=== PATIENT | female | born 1995 | race Caucasian/White ===

== ENCOUNTER 2024-11-19 09:08 | Observation (INO) ==
[2024-11-19] MEDS: ONDANSETRON INJ 2 MG/ML 2 ML VIAL IV STA ×2 (10:02→15:46)
[2024-11-19] MEDS: KETOROLAC 30 MG/ML VIAL IV STA (10:04)
[2024-11-19] MEDS: SODIUM CHLORIDE 0.9% 1,000 ML IV ONE (10:08)
[2024-11-19 10:33] LABS: Hematocrit (blood only) 36.6 % (37.0-47.0); Hemoglobin 12.6 g/dl (12.0-16.0); Immature Granulocytes # (auto) 0.03 K/uL (0.01-0.20); Immature Granulocytes % (auto) 0.3 %; Mean Corpuscular Hemoglobin 31.4 pg (25.0-34.0); Mean Corpuscular Volume 91.3 fL (80.0-100.0); Platelet Count 257 K/uL (130-400); RDW Standard Deviation 42.3 fL (36.4-46.3); Red Blood Count 4.01 M/uL (4.20-5.40); White Blood Count 9.21 K/ul (4.8-10.8)
[2024-11-19 10:45] LABS: Alanine Aminotransferase 29.0 U/L (7-52); Albumin Globulin Ratio 1.5 (0.9-2); Alkaline Phosphatase 48.0 U/L (34-104); Anion Gap 6.0 (3-11); Bilirubin,Total 0.3 mg/dl (0.2-1.0); Blood Urea Nitrogen 10.0 mg/dl (6-23); Calcium 8.7 mg/dl (8.6-10.3); Carbon Dioxide 24.0 mmol/L (21-32); Chloride 105.0 mmol/L (98-107); Creatinine Clr Calc Pharmacy 107.4 ml/min; Globulin 2.3 gm/dl (2.5-4.0); Glucose 151.0 mg/dl (70-99(Fasting)); Potassium 3.6 mmol/L (3.5-5.1); Sodium 135.0 mmol/L (136-145); Total Protein 5.7 gm/dl (6.0-8.3)
[2024-11-19] MEDS: ACETAMINOPHEN 1,000 MG/100 ML VIAL IV STA (12:32)
--- NOTE | 2024-11-19 12:35 | Ultrasound Report ---
PELVIC ULTRASOUND CLINICAL HISTORY: Pelvic pain and abdominal bloating. Patient undergoing IVF with an egg retrieval 24 hours ago at [place]. COMPARISON STUDY: None TECHNIQUE: Transabdominal sonography of the pelvis was performed. FINDINGS: The uterus measured 8.2 x 4.5 x 3.1 cm. The endometrial stripe measured 6 mm in thickness. The right ovary measured 8.4 x 7.5 x 4.5 cm. The left ovary measured 8.6 x 7.7 x 5.9 cm. Both ovaries demonstrated color flow. There are multiple prominent bilateral ovarian follicles consistent with stimulation from IVF medicat ion. There is a small amount of ascites present within the pelvis and both flanks. The patient declined endovaginal scanning. IMPRESSION: 1. Enlarged bilateral ovaries with multiple bilateral ovarian follicles. The findings are consistent with stimulation from IVF medication. No ultrasonographic evidence of ovarian torsion 2. Small amount of ascites within the pelvis and both flanks. This is nonspecific but may be secondar y to follicle rupture or the patient's recent IVF procedure. ACT 112: Negative or not required by law. Electronically signed by: James Le M.D. 11/19/2024 12:34 PM
[2024-11-19 12:39] LABS: Appearance Urine Clear (Clear); Glucose Urine UA Negative (Negative)
--- NOTE | 2024-11-19 13:02 | Emergency Department Note ---
Impression & Plan Ovarian hyperstimulation syndrome ED Provider Note CHIEF COMPLAINT: Pelvic pain HISTORY OF PRESENTING ILLNESS: Patient is a 28-year-old female presents to the emergency department today for complaints of lower pelvic pain after post retrieval from an egg for IVF. She was seen by Dr. Milena Alanis from [facility]. She had the procedure done 24 hours ago and has had increased pain since. She denies any bleeding but does states she had very mild spotting yesterday. Per Dr. Merrill there were a total of 16-17 puncture sites for egg retrieval. She denies chest pain, sob, breathing difficulties, abdominal pain, headache, fevers/chills, blood in stool or urine, any recent illness, or any recent travel. REVIEW OF SYSTEMS: See HPI for pertinent positives and pertinent negatives. ALLERGIES: See below MEDICATIONS: See below PAST MEDICAL HISTORY: See below PHYSICAL EXAM: VITAL SIGNS - Vital signs and nursing notes were reviewed. GENERAL -28-year-old female appearing her stated age who is in no acute distress. Communicates well with provider and answers questions appropriately. HEAD - NC/AT. EYES - PERRL with EOMI bilaterally. Sclera anicteric. Palpebral conjunctiva pink and moist with no injection noted. NECK - Neck with FROM. Supple to palpation. No nuchal rigidity. LUNGS - Chest wall symmetric without accessory muscle use, intercostals retractions, or central cyanosis. Normal vesicular breath sounds CTA B/L. No wheezes, rales, or rhonchi appreciated. CARDIAC - RRR with S1/S2. No murmur, rubs, or gallops appreciated. ABDOMEN - Abdominal contour is without pulsations or visible masses. Negative [place] or Gary Turners Signs. BS normoactive all four quadrants. Increased tenderness to palpation appreciated in all 4 quadrants. Mild bloating distention noted. No guarding. No rebound Tenderness. Negative Vovsings. Negative [place]. No palpable masses, hepatosplenomegaly, or ascites noted. EXTREMITIES - No clubbing or peripheral cyanosis. No pretibial edema present. +3/5 radial and dorsalis pedis pulses palpated throughout. +5/5 strength noted in UE/LE bilaterally. PSYCH - A&Ox3 and cooperates fully with examiner. Pt is very pleasant and interacts well with examiner. DIFFERENTIAL DIAGNOSIS: Differential diagnosis includes appendicitis, diverticulitis, constipation, gastroenteritis, bowel obstruction, cholecystitis, appendicitis, inflammatory bowel disease, renal colic, PUD, biliary pathology, pancreatitis, mesenteric ischemia, aortic pathology, infection, genitourinary, UTI, perforated viscus, ovarian torsion, hyperstimulation ovarian syndrome, among others. ED COURSE AND MEDICAL DECISION MAKING: HISTORY FROM INDEPENDENT HISTORIAN: History was provided by the patient and her significant other who is a secondary historian. MONITOR: Continuous sap portal developer: Order was placed for continuous sap portal developer. Patient was placed on the sap portal developer and continuous pulse ox. Patient was noted to be in normal sinus rhythm at an initial rate of 90 bpm per my interpretation. INTERPRETATION OF LABS: I interpreted the labs with full lab results as below in the lab section of this note. Laboratory results pertinent to the emergent complaint are discussed in the MDM section below. The patient was advised to follow up with their PCP and/or specialist(s) for further outpatient monitoring and management of any abnormal results. INTERPRETATION OF IMAGING: Imaging studies were interpreted by myself and read by radiology as per the imaging section of this note. The patient was advised to follow up with their PCP and/or specialist(s) for further outpatient management of any non-emergent abnormal findings. CHRONIC MEDICAL/SOCIAL CONDITIONS AFFECTING CARE: No social concerns were identified as barriers to patients care. ESCALATION OF CARE CONSIDERED: I considered admission on this patient with a diagnosis of ovarian hyperstimulation syndrome. CONSULTATIONS: I had a meaningful discussion about this patient with Dr. Avilez who agrees with my assessment and the treatment plan. I consulted with Dr. Milena Merrill from [facility] who performed the original procedure. I also consulted with Dr. Avilez from [facility] who was able to come down and evaluate the patient. She was also in touch contact with Dr. Milena Merrill. SUMMARY: I examined the patient for complaints of abdominal pain postprocedure. A physical exam and history were performed. Nursing notes, EMR, and medication list were personally reviewed. CBC showed no leukocytosis or thrombocytopenia. Hemoglobin was 11.4 showing a mild anemia. Patient does deny any bleeding. CMP showed no emergent findings with a normal kidney and liver function. Urinalysis showed no infection or blood. Pelvic ultrasound did show enlarged bilateral ovaries with multiple bilateral ovarian follicles, findings consistent with stimulation from IVF. There is no evidence of ovarian torsion. There is a small amount of ascites within the pelvis and both flanks which is not specific and could be secondary to follicle rupture or the recent IVF procedure. CT of the abdomen and pelvis showed enlarged multicystic bilateral ovaries with ascites and small bilateral pleural effusions. Highly suggestive of ovarian hyperstimulation syndrome. Correlating the patient's labs with with the CT findings this patient may have a very mild ovarian hyperstimulation syndrome. Throughout the patient's stay here in the emergency department she originally complained of pain as a 5/10. She was given 30 mg of Toradol with improvement in pain and discomfort. She was also given Zofran 4 mg IV with improvement in nausea. She later was requesting some Tylenol as her pain was returning. She was given 1 g of Tylenol IV with improvement in pain and discomfort. Sometime later the patient was reporting increased pain again and was given morphine 2 mg IV and Zofran 4 mg IV with improvement in pain and discomfort as well as nausea. I did consult with Dr. Morgan from [facility] who is recommending admission or transfer of the patient to be observed overnight. I also consulted with Dr. Avilez from [facility] here at the hospital who is also able to speak with Dr. Morgan and agree to plan of care for the patient. The patient will be admitted for observation overnight. Dr. Avilez accepts the patient for admission. DIAGNOSIS: Ovarian hyperstimulation syndrome TREATMENT PLAN/DISCHARGE INSTRUCTIONS: Admit to [facility] by Dr. Avilez. Past Med/Surg History Problem List (Updated 11/20/24 @ 14:19 by ANNA Jones) Depression with anxiety Allergies Ovarian hyperstimulation syndrome (Acute) Medical History (Updated 11/20/24 @ 14:19 by ANNA Jones) Atypical chest pain Social History (Updated 01/21/21 @ 21:33 by Felecia Rocha MD) Smoking Status: Light tobacco smoker Tobacco Type: Cigarettes and E-cigarettes / Vaping Second Hand Exposure: No; Do You Dip or Chew Tobacco: No; Hx Alcohol Use: Yes Alcohol type: beer, wine and hard liquor Hx Substance Use: No Preferred Language: Bruneian Communication Ability: Effective Systems Mechanic Required: No Beliefs That Will Affect Care: None Current Living Situation: Parent current occupational status: employed Feels Safe at Home: Yes Assistive Devices: None Allergies Allergies Allergy/AdvReac Type Severity Reaction Status Date / Time No Known Allergies Allergy Verified 01/09/21 23:52 Home Meds Home Medications Medication Instructions Recorded Confirmed loratadine-pseudoephedrine ER 10 1 tab PO DAILY PRN Congestion 01/09/21 11/19/24 mg-240 mg tablet,extended [id number] (Claritin-D 24 Hour) buspirone 10 mg tablet 10 mg PO BID 11/19/24 11/19/24 escitalopram oxalate 20 mg tablet 20 mg PO DAILY 11/19/24 11/19/24 levonorgestrel 0.15 mg-ethinyl 1 tab PO DAILY 11/19/24 11/19/24 estradiol 0.03 mg tablet (Altavera (28)) Previous Rx's Medication Instructions Recorded ondansetron 4 mg disintegrating 4 mg PO DAILY PRN nausea and 11/20/24 tablet vomiting 5 days #5 tabs oxycodone 5 mg tablet 5 mg PO Q4 PRN pain #14 tabs 11/20/24 Results & Data (ED) Vital Signs Vital Signs - 24 hr 11/19/24 14:42 11/19/24 15:36 11/19/24 15:45 Temperature 37.1 C Temperature Source Oral Pulse Rate 85 Pulse Rate [Finger] 83 85 Pulse Rate from SpO2 Sensor 87 Respiratory Rate 18 16 19 Respiratory Effort / Characteristics Non-Labored Spontaneous Respiratory Depth Normal Blood Pressure Blood Pressure [Right Arm] 130/81 128/72 Blood Pressure Mean Blood Pressure Mean [Right Arm] 97 90 Blood Pressure Position [Right Arm] Semi-fowlers Pulse Oximetry 100 99 99 Oxygen Delivery Method Room Air 11/19/24 15:45 11/19/24 15:45 11/19/24 15:45 Temperature Temperature Source Pulse Rate Pulse Rate [Finger] Pulse Rate from SpO2 Sensor Respiratory Rate Respiratory Effort / Characteristics Respiratory Depth Blood Pressure 120/73 120/73 120/73 Blood Pressure [Right Arm] Blood Pressure Mean 84 84 84 Blood Pressure Mean [Right Arm] Blood Pressure Position [Right Arm] Pulse Oximetry Oxygen Delivery Method 11/19/24 15:51 11/19/24 15:55 11/19/24 16:00 Temperature Temperature Source Pulse Rate 86 90 Pulse Rate [Finger] Pulse Rate from SpO2 Sensor 87 Respiratory Rate 18 Respiratory Effort / Characteristics Respiratory Depth Blood Pressure 124/82 Blood Pressure [Right Arm] Blood Pressure Mean 84 Blood Pressure Mean [Right Arm] Blood Pressure Position [Right Arm] Pulse Oximetry 99 Oxygen Delivery Method 11/19/24 16:00 11/19/24 16:06 11/19/24 16:15 Temperature Temperature Source Pulse Rate 83 85 Pulse Rate [Finger] Pulse Rate from SpO2 Sensor 85 84 Respiratory Rate 21 15 Respiratory Effort / Characteristics Respiratory Depth Blood Pressure 124/82 Blood Pressure [Right Arm] Blood Pressure Mean 84 Blood Pressure Mean [Right Arm] Blood Pressure Position [Right Arm] Pulse Oximetry 98 99 Oxygen Delivery Method 11/19/24 16:15 11/19/24 16:15 11/19/24 16:15 Temperature Temperature Source Pulse Rate Pulse Rate [Finger] Pulse Rate from SpO2 Sensor Respiratory Rate Respiratory Effort / Characteristics Respiratory Depth Blood Pressure 136/83 136/83 136/83 Blood Pressure [Right Arm] Blood Pressure Mean 96 96 96 Blood Pressure Mean [Right Arm] Blood Pressure Position [Right Arm] Pulse Oximetry Oxygen Delivery Method 11/19/24 16:21 11/19/24 16:30 11/19/24 16:30 Temperature Temperature Source Pulse Rate 86 Pulse Rate [Finger] Pulse Rate from SpO2 Sensor 85 Respiratory Rate 15 Respiratory Effort / Characteristics Respiratory Depth Blood Pressure 131/90 131/90 Blood Pressure [Right Arm] Blood Pressure Mean 102 102 Blood Pressure Mean [Right Arm] Blood Pressure Position [Right Arm] Pulse Oximetry 99 Oxygen Delivery Method 11/19/24 16:30 11/19/24 16:36 11/19/24 16:45 Temperature Temperature Source Pulse Rate 84 89 Pulse Rate [Finger] Pulse Rate from SpO2 Sensor 85 88 Respiratory Rate 23 18 Respiratory Effort / Characteristics Respiratory Depth Blood Pressure 131/90 Blood Pressure [Right Arm] Blood Pressure Mean 102 Blood Pressure Mean [Right Arm] Blood Pressure Position [Right Arm] Pulse Oximetry 99 99 Oxygen Delivery Method 11/19/24 16:45 11/19/24 16:45 11/19/24 16:45 Temperature Temperature Source Pulse Rate Pulse Rate [Finger] Pulse Rate from SpO2 Sensor Respiratory Rate Respiratory Effort / Characteristics Respiratory Depth Blood Pressure 141/84 H 141/84 H 141/84 H Blood Pressure [Right Arm] Blood Pressure Mean 96 96 96 Blood Pressure Mean [Right Arm] Blood Pressure Position [Right Arm] Pulse Oximetry Oxygen Delivery Method 11/19/24 16:51 11/19/24 16:57 11/19/24 17:00 Temperature Temperature Source Pulse Rate 84 Pulse Rate [Finger] Pulse Rate from SpO2 Sensor 85 82 Respiratory Rate Respiratory Effort / Characteristics Respiratory Depth Blood Pressure 128/76 Blood Pressure [Right Arm] Blood Pressure Mean 95 Blood Pressure Mean [Right Arm] Blood Pressure Position [Right Arm] Pulse Oximetry 98 99 Oxygen Delivery Method 11/19/24 17:00 11/19/24 17:06 Temperature Temperature Source Pulse Rate 87 Pulse Rate [Finger] Pulse Rate from SpO2 Sensor 88 Respiratory Rate Respiratory Effort / Characteristics Respiratory Depth Blood Pressure 128/76 Blood Pressure [Right Arm] Blood Pressure Mean 95 Blood Pressure Mean [Right Arm] Blood Pressure Position [Right Arm] Pulse Oximetry 98 Oxygen Delivery Method Laboratory Data 11/20/24 06:04 11/20/24 06:04 Lab Results 11/19/24 11/19/24 Range/Units 10:08 12:25 WBC 9.21 (4.8-10.8) K/ul RBC 4.01 L (4.20-5.40) M/uL Hgb 12.6 (12.0-16.0) g/dl Hct 36.6 L (37.0-47.0) % MCV 91.3 (80.0-100.0) fL MCH 31.4 (25.0-34.0) pg MCHC 34.4 (32.0-36.0) g/dL RDW Std Deviation 42.3 (36.4-46.3) fL RDW Coeff of Allison 12.6 (11.5-14.5) % Plt Count 257 (130-400) K/uL MPV 9.0 L (9.4-12.4) fL Immature Gran % (Auto) 0.3 % Neut % (Auto) 80.4 % Lymph % (Auto) 12.2 % Yancey % (Auto) 6.4 % Eos % (Auto) 0.3 % Baso % (Auto) 0.4 % Neut # (Auto) 7.40 H (1.40-6.50) K/uL Lymph # (Auto) 1.12 L (1.20-3.40) K/uL Yancey # (Auto) 0.59 (0.11-0.59) K/uL Eos # (Auto) 0.03 (0.00-0.50) K/uL Baso # (Auto) 0.04 (0.00-0.20) K/uL Immature Gran # (Auto) 0.03 (0.01-0.20) K/uL Sodium 135 L (136-145) mmol/L Potassium 3.6 (3.5-5.1) mmol/L Chloride 105 (98-107) mmol/L Carbon Dioxide 24 (21-32) mmol/L Anion Gap 6 (3-11) BUN 10 (6-23) mg/dl Creatinine 0.75 (0.6-1.2) mg/dl Est Cr Clr Drug Dosing 107.4 ml/min eGFR 112.53 BUN/Creatinine Ratio 13.3 (10-20) Glucose 151 H (70-99(Fasting)) mg/dl Calcium 8.7 (8.6-10.3) mg/dl Total Bilirubin 0.3 (0.2-1.0) mg/dl AST 24 (13-39) U/L ALT 29 (7-52) U/L Alkaline Phosphatase 48 (34-104) U/L Total Protein 5.7 L (6.0-8.3) gm/dl Albumin 3.4 (3.4-5.0) gm/dl Globulin 2.3 L (2.5-4.0) gm/dl Albumin/Globulin Ratio 1.5 (0.9-2) Urine Color Yellow Urine Appearance Clear (Clear) Urine pH 7.0 (4.5-7.5) Ur Specific [place] 1.016 (1.000-1.030) Urine Protein Negative (Negative) Urine Glucose (UA) Negative (Negative) Urine Ketones Negative (Negative) Urine Blood Negative (Negative) Urine Nitrite Negative (Negative) Urine Bilirubin Negative (Negative) Urine Urobilinogen Negative (Negative) Ur Leukocyte Esterase Negative (Negative) Urine Comment Administered Medications Discontinued Medications Acetaminophen (Acetaminophen 325 Mg Tab) 650 mg PO Q4H PRN PRN Reason: Pain or Fever Stop: 12/19/24 17:16 Last Admin: 11/20/24 07:40 Dose: 650 mg Documented By: Admin: 11/19/24 18:37 Dose: 650 mg Documented By: AARON Buspirone HCl (Buspirone 5 Mg Tab) 10 mg PO BID HUBERT Stop: 12/19/24 20:59 Last Admin: 11/20/24 08:24 Dose: 10 mg Documented By: Admin: 11/19/24 20:55 Dose: 10 mg Documented By: JOVAN Cabergoline (Cabergoline) 1 each PO DAILY HUBERT Stop: 12/19/24 19:59 Last Admin: 11/20/24 09:01 Dose: Not Given Documented By: Admin: 11/19/24 20:56 Dose: 1 each Documented By: JOVAN Escitalopram Oxalate (Escitalopram Oxalate 20 Mg Tab) 20 mg PO DAILY HUBERT Stop: 12/20/24 08:59 Last Admin: 11/20/24 08:24 Dose: 20 mg Documented By: CASIE Hydromorphone HCl (Hydromorphone Agronomy Technician 30 Mg/30 Ml) 30 mg IV PRN PRN; Protocol PRN Reason: PHOTO LAB MANAGER Pain Titration Stop: 12/03/24 17:16 Last Admin: 11/19/24 20:30 Dose: 30 mg Documented By: JOVAN Co-signed By: TONY Hydromorphone HCl (Hydromorphone Inj 0.5 Mg/0.5 Ml Syr) 0.5 mg IV NOW STA Stop: 11/19/24 18:21 Last Admin: 11/19/24 18:39 Dose: 0.5 mg Documented By: FG Sodium Chloride (Nss) 1,000 mls @ 999 mls/hr IV .Q1H1M ONE Stop: 11/19/24 10:50 Last Infusion: 11/19/24 11:46 Dose: Infused Documented By: Admin: 11/19/24 10:08 Dose: 999 mls/hr Documented By: CEF Acetaminophen (Ofirmev) 1,000 mg in 100 mls @ 400 mls/hr IV NOW STA Stop: 11/19/24 12:26 Last Infusion: 11/19/24 14:16 Dose: Infused Documented By: Admin: 11/19/24 12:32 Dose: 400 mls/hr Documented By: CEF Sodium Chloride (Nss) 1,000 mls @ 50 mls/hr IV .Q20H HUBERT Stop: 12/03/24 17:19 Last Admin: 11/20/24 04:14 Dose: 50 mls/hr Documented By: Infusion: 11/20/24 04:14 Dose: Infused Documented By: Infusion: 11/19/24 21:00 Dose: 50 mls/hr Documented By: Admin: 11/19/24 20:37 Dose: 15 mls/hr Documented By: JOVAN Sodium Chloride (Nss) 500 mls @ 50 mls/hr IV .Q10H HUBERT Stop: 11/19/24 17:29 Last Admin: 11/19/24 18:48 Dose: 50 mls/hr Documented By: AARON Promethazine HCl (Phenergan) 25 mg in 51 mls @ 204 mls/hr IV Q6H PRN PRN Reason: Nausea And Vomiting Stop: 12/19/24 19:20 Last Infusion: 11/19/24 20:04 Dose: Infused Documented By: Admin: 11/19/24 19:37 Dose: 204 mls/hr Documented By: PIERO Ioversol (Optiray 320 100ml) 90 ml IV ONCE ONE Stop: 11/19/24 14:13 Last Admin: 11/19/24 14:12 Dose: 90 ml Documented By: DOMONIQUE Ketorolac Tromethamine (Ketorolac 30 Mg/Ml Vial) 30 mg IV NOW STA Stop: 11/19/24 09:48 Last Admin: 11/19/24 10:04 Dose: 30 mg Documented By: CEF Miscellaneous (Levonorgestrel-Ethinyl Estrad [Altavera (28)] 0.15-0.03 Mg Table--Order Awaiting Action) 1 each N/A QS HUBERT Stop: 12/20/24 00:00 Last Admin: 11/20/24 08:28 Dose: Not Given Documented By: Admin: 11/20/24 00:06 Dose: Not Given Documented By: JOVAN Morphine Sulfate (Morphine Sulfate 2 Mg/Ml Carp) 2 mg IV NOW STA Stop: 11/19/24 15:07 Last Admin: 11/19/24 15:36 Dose: 2 mg Documented By: NICOLE Ganirelix Acetate 250 Mcg/0.5ml ~Non- Formulary Patient's Own Med 1 each SQ HS ONE Stop: 11/19/24 21:01 Last Admin: 11/19/24 20:56 Dose: 250 mcg Documented By: JOVAN Ondansetron HCl (Ondansetron Inj 2 Mg/Ml 2 Ml Vial) 4 mg IV NOW STA Stop: 11/19/24 09:49 Last Admin: 11/19/24 10:02 Dose: 4 mg Documented By: CEF Ondansetron HCl (Ondansetron Inj 2 Mg/Ml 2 Ml Vial) 4 mg IV NOW STA Stop: 11/19/24 15:41 Last Admin: 11/19/24 15:46 Dose: 4 mg Documented By: NICOLE Ondansetron HCl (Ondansetron Inj 2 Mg/Ml 2 Ml Vial) 4 mg IV Q6H PRN PRN Reason: Nausea And Vomiting Stop: 12/19/24 17:16 Last Admin: 11/19/24 18:36 Dose: 4 mg Documented By: AARON Imaging Data Radiologist's Impression: Pelvis Ultrasound 11/19/24 09:48 PELVIC ULTRASOUND CLINICAL HISTORY: Pelvic pain and abdominal bloating. Patient undergoing IVF with an egg retrieval 24 hours ago at [place]. COMPARISON STUDY: None TECHNIQUE: Transabdominal sonography of the pelvis was performed. FINDINGS: The uterus measured 8.2 x 4.5 x 3.1 cm. The endometrial stripe measured 6 mm in thickness. The right ovary measured 8.4 x 7.5 x 4.5 cm. The left ovary measured 8.6 x 7.7 x 5.9 cm. Both ovaries demonstrated color flow. There are multiple prominent bilateral ovarian follicles consistent with stimulation from IVF medication. There is a small amount of ascites present within the pelvis and both flanks. The patient declined endovaginal scanning. IMPRESSION: 1. Enlarged bilateral ovaries with multiple bilateral ovarian follicles. The findings are consistent with stimulation from IVF medication. No ultrasonographic evidence of ovarian torsion 2. Small amount of ascites within the pelvis and both flanks. This is nonspecific but may be secondary to follicle rupture or the patient's recent IVF procedure. ACT 112: Negative or not required by law. Electronically signed by: James Le M.D. 11/19/2024 12:34 PM Abdomen/Pelvis CT 11/19/24 13:54 CT SCAN OF THE ABDOMEN AND PELVIS WITH IV CONTRAST CLINICAL HISTORY: Abdominal pain. History of egg for IVF performed at [place] 24 hours ago. Vomiting. COMPARISON STUDY: Pelvic ultrasound performed the same day TECHNIQUE: Following the IV administration of 90 cc of Optiray 320, CT scan of the abdomen and pelvis is performed from the lung bases to the proximal femora. Images are reviewed in the axial, sagittal, and coronal planes. IV contrast was administered without complication. A dose lowering technique was utilized adhering to the principles of ALARA. CT DOSE: 870.15 mGy.cm FINDINGS: Lung bases: There are small bilateral pleural effusions with basilar atelectatic change Liver: No space-occupying hepatic masses are visualized. Hepatic and portal veins appear patent. Gallbladder: No intrinsic gallbladder abnormalities identified Spleen: There is an upper pole splenic cleft. No splenic masses are visualized. Pancreas: Masses are visualized. Adrenal glands: Neither adrenal gland is pathologically enlarged. Kidneys: No solid renal masses are visualized. There is no hydronephrosis. Abdominal vasculature: There is no evidence of abdominal aortic dilatation. Bowel: There are no transition zones indicate bowel obstruction. The appendix appears normal. Peritoneum: There is a small volume of pelvic ascites. There is perihepatic and perisplenic fluid. There is ascites within the paracolic gutters. Lymphadenopathy: There is no evidence of pathologic lymphadenopathy Pelvic viscera: Both ovaries are enlarged and contain multiple cysts. The left ovary measures 8 cm in length. The right ovary measures 6.5 cm in length. No bladder abnormalities are visualized. No uterine masses are visualized. Skeletal structures: No lytic or blastic skeletal lesions are visualized. IMPRESSION: 1. Enlarged multicystic bilateral ovaries with ascites and small bilateral pleural effusions. The findings are highly suggestive of ovarian hyperstimulation syndrome. ACT 112: Negative or not required by law. Electronically signed by: James Le M.D. 11/19/2024 2:59 PM Discharge Plan Visit Data Chief Complaint: Abdominal Pain Stated Complaint: ABD PAIN, 24 POST EGG RETREIVAL, TIGHTNESS, DIZZY ED Provider: Trey Avilez ED Midlevel Provider: Courtney Nicole Discharge Problem: Ovarian hyperstimulation syndrome Patient Disposition: Admitted As Inpatient Condition: Good Discharge Instructions Interventions: ED Discharge Assessment Last Done: 11/19/24 18:59
[2024-11-19] MEDS: OPTIRAY 320 100ml IV ONE (14:12)
--- NOTE | 2024-11-19 15:01 | CT Scan Report ---
CT SCAN OF THE ABDOMEN AND PELVIS WITH IV CONTRAST CLINICAL HISTORY: Abdominal pain. History of egg for IVF performed at [place] 24 hours ago. Vomitin g. COMPARISON STUDY: Pelvic ultrasound performed the same day TECHNIQUE: Following the IV administration of 90 cc of Optiray 320, CT scan of the abdomen and pelvi s is performed from the lung bases to the proximal femora. Images are reviewed in the axial, sagittal , and coronal planes. IV contrast was administered without complication. A dose lowering technique wa s utilized adhering to the principles of ALARA. CT DOSE: 870.15 mGy.cm FINDINGS: Lung bases: There are small bilateral pleural effusions with basilar atelectatic change Liver: No space-occupying hepatic masses are visualized. Hepatic and portal veins appear patent. Gallbladder: No intrinsic gallbladder abnormalities identified Spleen: There is an upper pole splenic cleft. No splenic masses are visualized. Pancreas: Masses are visualized. Adrenal glands: Neither adrenal gland is pathologically enlarged. Kidneys: No solid renal masses are visualized. There is no hydronephrosis. Abdominal vasculature: There is no evidence of abdominal aortic dilatation. Bowel: There are no transition zones indicate bowel obstruction. The appendix appears normal. Peritoneum: There is a small volume of pelvic ascites. There is perihepatic and perisplenic fluid. Th ere is ascites within the paracolic gutters. Lymphadenopathy: There is no evidence of pathologic lymphadenopathy Pelvic viscera: Both ovaries are enlarged and contain multiple cysts. The left ovary measures 8 cm in length. The right ovary measures 6.5 cm in length. No bladder abnormalities are visualized. No uterine masses are visualized. Skeletal structures: No lytic or blastic skeletal lesions are visualized. IMPRESSION: 1. Enlarged multicystic bilateral ovaries with ascites and small bilateral pleural effusions. The fin dings are highly suggestive of ovarian hyperstimulation syndrome. ACT 112: Negative or not required by law. Electronically signed by: James Le M.D. 11/19/2024 2:59 PM
[2024-11-19] MEDS: MoRPHine SULFATE 2 MG/ML CARP IV STA (15:36)
[2024-11-19] MEDS ORDERED: NALOXONE HCL 0.4 MG/1 ML VIAL/CARP IV PRN (17:17)
--- NOTE | 2024-11-19 17:34 | OB/GYN Consultation ---
Date of Consultation November 19, 2024 Assessment & Plan (1) Ovarian hyperstimulation syndrome: Plan Patient with moderate ohss with need for pain control and monitoring for improvement. Discussed transfer to tertiary center vs. initial monitoring and mgmt here. She prefers latter. She has spoken to her [facility] physician Dr. Merrill and I have spoken to that physician as well. No evidence of torsion, clinically, by exam and on imaging. Reviewed plan of care with pt for pain mgmt, diet--salty and electrolyte rich options preferred, monitoring for worsening sx, labs and vital signs. In discussion with [facility] adding cabergoline and/or GNRH agonist could sped her recovery, but i have asked pharmacy about availability to us here and not available (pharmacy checking further and let me know if that changes). 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 Couple agreeable to this plan but aware may need to transfer to tertiary care facility in future. If any concerns for sudden worsening pain, needs immediate reevaluation. Addendum: revisited pt at bedside. she ended up bringing from home her gnrh agonist and cabergoline and they have been dosed. she is drinking and eating and needs to void. pain is better controlled. feels belly is tight. abd soft mild distended. no fluid wave. will cont with current care plan. pt to alert me of any worsening or sudden pain, she is aware of concern for torsion risk. strict i/o's. labs ordered for am. multiple visits with pt in er and at floor. called her [facility] physician and then communicated with her again about trt plan face to face time 60min and time spent with documentation and collaboration with [facility] physicians exceeds 30min. History of Present Illness Reason for Consultation: ovarian hyperstimulation Requesting Physician: Courtney CASTILLO Attending Physician: Courtney CASTILLO History of Present Illness 28yo G0 with cc of worsening abdominal pain and nausea in background of recent egg retrieval who I am asked to see on consult by ANNA Nicole. Patient notes that yesterday under the care of Dr. Merrill, [facility], she had egg retrieval of 13 eggs. She was also given a shot thereafter and went home. This am noting worsening pain, difficult to walk to BR. Came to ER. No vaginal bleeding. Some nausea but no vomiting. Tried tylenol and ibuprofen for pain but did not really help. Then given morphine and that helped but made her feel funny. Has some discomfort on right with deep breaths but otherwise not SOB. No sudden severe pain at any point, was gradual worsening. Hungry now, last ate at 8am. Urinating, has voided twice since being here. Does not report sudden severe increasing abdominal girth, feels she could get her routine pants on but feels would be tight. No LE edema. She underwent CT scan here and pelvic u/s. Fluid in abdomen c/w mild acites. Bilateral ovarian enlargement with multiple cysts. Normal uterus. By u/s normal flow/perfusion of both ovaries. Patient in ER with partner. They have been communicating with [facility]. OB/GYNHx: G0, infertility, spouse with genetic disorder and so plan was for genetic testing of embryos and transfer down the road. Allergies Allergy/AdvReac Type Severity Reaction Status Date / Time No Known Allergies Allergy Verified 01/09/21 23:52 Home Medications Medication Instructions Recorded Confirmed Type loratadine-pseudoephedrine ER 10 1 tab PO DAILY PRN Congestion 01/09/21 11/19/24 History mg-240 mg tablet,extended [id number] (Claritin-D 24 Hour) buspirone 10 mg tablet 10 mg PO BID 11/19/24 11/19/24 History escitalopram oxalate 20 mg tablet 20 mg PO DAILY 11/19/24 11/19/24 History levonorgestrel 0.15 mg-ethinyl 1 tab PO DAILY 11/19/24 11/19/24 History estradiol 0.03 mg tablet (Altavera (28)) Patient History Medical History (Updated 11/19/24 @ 17:44 by Shae Avilez MD, FACOG) Atypical chest pain Social History (Updated 01/21/21 @ 21:33 by Fleecia Rocha MD) Smoking Status: Never smoker Preferred Language: Turkish current occupational status: employed Feels Safe at Home: Yes Review of Systems Constitutional: as per Subjective / HPI Physical Exam Constitutional: WD/WN, vitals as above (laying still on stretcher but does not appear toxic, able to move in bed) Respiratory: normal respiratory effort, lungs clear to auscultation (no rales) Cardiovascular: Rate/Rhythm: regular rate and regular rhythm Gastrointestinal (Abdomen): Inspection/Auscultation: abdomen normal to inspection and + abdomen distended (slightly) Percussion/Palpation: + abdomen tender (mild ) and abdomen soft; no guarding, abdomen not rigid and no fluid wave Neurologic: grossly normal Psychiatric: A+Ox3, euthymic affect Results & Data Vital Signs (Past 12 Hours) Vital Signs Temp Pulse Pulse Resp BP BP Pulse Ox 11/19/24 15:55 90 11/19/24 15:36 85 16 128/72 99 11/19/24 13:20 89 16 131/77 100 11/19/24 11:09 95 H 16 133/81 100 11/19/24 09:20 98.2 F 119 H 18 145/98 H 95 O2 Del Method 11/19/24 15:55 11/19/24 15:36 11/19/24 13:20 Room Air 11/19/24 11:09 Room Air 11/19/24 09:20 Room Air Laboratory Results No significant lab abnormalities noted. Diagnostic Findings CT report reviewed, u/s images and report reviewed. PG Care Time/CCT Total # of Minutes Spent Total Time Spent with Patient: Total time spent is greater than 50% in coordination of care (as documented) at patient's floor/unit and/or counseling patient: Coding Level of Care Code INT OBSERVATION CARE 70M LVL 3 Diagnoses Ovarian hyperstimulation syndrome N98.1
[2024-11-19] MEDS: ONDANSETRON INJ 2 MG/ML 2 ML VIAL IV PRN (18:36)
[2024-11-19] MEDS: ACETAMINOPHEN 325 MG TAB PO PRN (18:37)
[2024-11-19] MEDS: HYDROmorphone INJ 0.5 MG/0.5 ML SYR IV STA (18:39)
[2024-11-19] MEDS: SODIUM CHLORIDE 0.9% 500 ML IV SCH (18:48)
[2024-11-19] MEDS: PROMETHAZINE 25 MG/51 ML BAG IV PRN (19:37)
[2024-11-19] MEDS: HYDROmorphone PCA 30 MG/30 ML IV PRN (20:30)
[2024-11-19] MEDS: SODIUM CHLORIDE 0.9% 1,000 ML IV SCH (20:37)
[2024-11-19] MEDS: busPIRone 5 MG TAB PO SCH (20:55)
[2024-11-19] MEDS: CABERGOLINE PO SCH (20:56)
[2024-11-19] MEDS: [UNRECOGNIZED DRUG - OTHER] SQ ONE (20:56)
[2024-11-20 03:00] VITALS: O2SAT 98
[2024-11-20 06:40] LABS: Hematocrit (blood only) 33.5 % (37.0-47.0); Hemoglobin 11.4 g/dl (12.0-16.0); Immature Granulocytes # (auto) 0.04 K/uL (0.01-0.20); Immature Granulocytes % (auto) 0.6 %; Mean Corpuscular Hemoglobin 31.4 pg (25.0-34.0); Mean Corpuscular Volume 92.3 fL (80.0-100.0); Platelet Count 255 K/uL (130-400); RDW Standard Deviation 43.7 fL (36.4-46.3); Red Blood Count 3.63 M/uL (4.20-5.40); White Blood Count 6.67 K/ul (4.8-10.8)
--- NOTE | 2024-11-20 07:01 | Gynecologic Progress Note ---
Date of Service November 20, 2024 Assessment & Plan (1) Ovarian hyperstimulation syndrome: Plan Patient improved this am. Will stop airways control specialist and see how she does with po pain meds, tylenol and prn oxycodone. Await all of am labs. So far cbc stable. Has been voiding and eating. She is aware to take her cabergoline daily per [facility] Merrill. She will need to see her on saturday. Pelvic rest and reduced activity recommended. Will allow dc home later this am, if labs ok and po pain mgmt a dequate. face to face time 10min review of record 10min documentation 10 min Admission and Anticipated Discharge Date Admission Date: November 19, 2024 Subjective Feels better this am. Slept through the night. Using airways control specialist and good pain control. Getting up to void. Eating with no continued n/v. Review of Systems Constitutional: as per Subjective / HPI Physical Exam Constitutional: WD/WN, vitals as above Respiratory: normal respiratory effort, lungs clear to auscultation Cardiovascular: Rate/Rhythm: regular rate and regular rhythm Gastrointestinal (Abdomen): Inspection/Auscultation: abdomen normal to inspection; abdomen not distended Percussion/Palpation: + abdomen tender (mild ) and abdomen soft; no guarding, abdomen not rigid and no fluid wave Neurologic: grossly normal Psychiatric: A+Ox3, euthymic affect Results & Data Vital Signs (Past 12 Hours) Vital Signs Temp Pulse Pulse Resp BP BP Pulse Ox 11/20/24 02:59 98.1 F 88 16 115/73 98 11/20/24 00:40 98.1 F 90 16 111/72 99 11/19/24 20:30 98.1 F 90 18 113/72 98 11/19/24 19:54 85 96 11/19/24 19:54 85 20 112/73 97 11/19/24 19:51 112/73 11/19/24 19:45 85 17 98 11/19/24 19:27 88 16 95 11/19/24 19:15 89 24 99 11/19/24 19:00 90 15 96 11/19/24 18:59 O2 Del Method 11/20/24 02:59 Room Air 11/20/24 00:40 Room Air 11/19/24 20:30 Room Air 11/19/24 19:54 11/19/24 19:54 Room Air 11/19/24 19:51 11/19/24 19:45 11/19/24 19:27 11/19/24 19:15 11/19/24 19:00 11/19/24 18:59 Room Air PG Care Time/CCT Total # of Minutes Spent Total Time Spent with Patient: Total time spent is greater than 50% in coordination of care (as documented) at patient's floor/unit and/or counseling patient: Coding Level of Care Code 55463 IN/OBS DISCH 30 MIN/LESS Diagnoses Ovarian hyperstimulation syndrome N98.1
[2024-11-20 07:37] VITALS: BP 115/71; PULSE 87; RESP 18; TEMP 98.4
[2024-11-20] MEDS: ESCITALOPRAM OXALATE 20 MG TAB PO SCH (08:24)
[2024-11-20 08:50] LABS: Alanine Aminotransferase 34.0 U/L (7-52); Albumin Globulin Ratio 1.7 (0.9-2); Alkaline Phosphatase 39.0 U/L (34-104); Anion Gap 4.0 (3-11); Bilirubin,Total 0.2 mg/dl (0.2-1.0); Blood Urea Nitrogen 9.0 mg/dl (6-23); Calcium 8.3 mg/dl (8.6-10.3); Carbon Dioxide 26.0 mmol/L (21-32); Chloride 109.0 mmol/L (98-107); Creatinine Clr Calc Pharmacy 108.9 ml/min; Globulin 1.8 gm/dl (2.5-4.0); Glucose 82.0 mg/dl (70-99(Fasting)); Potassium 4.2 mmol/L (3.5-5.1); Sodium 139.0 mmol/L (136-145); Total Protein 4.9 gm/dl (6.0-8.3)
--- NOTE | 2024-11-23 10:07 | Discharge Summary ---
Date of Service November 23, 2024 Admission HPI Per Admitting Provider 28yo G0 with cc of worsening abdominal pain and nausea in background of recent egg retrieval who I am asked to see on consult by ANNA Nicole in ER. Patient notes that yesterday under the care of Dr. Merrill, [facility], she had egg retrieval of 13 eggs. She was also given a shot thereafter and went home. This am noting worsening pain, difficult to walk to BR. Came to ER. No vaginal bleeding. Some nausea but no vomiting. Tried tylenol and ibuprofen for pain but did not really help. Then given morphine and that helped but made her feel funny. Has some discomfort on right with deep breaths but otherwise not SOB. No sudden severe pain at any point, was gradual worsening. Hungry now, last ate at 8am. Urinating, has voided twice since being here. Does not report sudden severe increasing abdominal girth, feels she could get her routine pants on but feels would be tight. No LE edema. She underwent CT scan here and pelvic u/s. Fluid in abdomen c/w mild acites. Bilateral ovarian enlargement with multiple cysts. Normal uterus. By u/s normal flow/perfusion of both ovaries. Patient in ER with partner. They have been communicating with [facility]. 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 Used juice scaleman dilaudid overnight and was given home meds of cabergoline and gnrh agonist to help improve her circumstance. AM labs were stable, exam findings stable to improved and pt felt better and ready to dc home. Plans f/u with [facility] saturday. Call with any concerns over weekend. Pelvic rest, no vigorous activity reviewed. Was able to have her pain better controlled with po pain meds. Coding Level of Care Code None Diagnoses Ovarian hyperstimulation syndrome N98.1
== END 2024-11-20 10:00 | disposition home or self-care (01) ==
LOC: EDINP 09:08 → ED 09:08 → 4E2 18:59